=== PATIENT | female | born 1960 | race Asian ===

== ENCOUNTER 2016-12-26 14:42 | Inpatient (IN) | payer OTHER ==
[~2016-12-26] VITALS: Ht 172.7 cm; Wt 53.9 kg
[2016-12-26 14:55] LABS: BASOPHIL COUNT 0.1 K/uL (0-0.1); EOSINOPHIL (%) 1.2 % (0-5); EOSINOPHIL COUNT 0.1 K/uL (0-0.3); HEMATOCRIT 37.5 % (36.0-46.0); IMMATURE GRANULOCYTE (%) 0.5 % (0.0-0.7); INSTRUMENT ABS NEUTROPHIL CT 2.8 K/uL; LYMPHOCYTE COUNT 2.4 K/uL (1.0-2.8); MCH 28.8 PG (29.0-34.0); MCV 89.9 FL (83-99); MEAN PLAT.VOLUME 10.6 uM^3 (9.5-12.4); MONOCYTE (%) 7.9 % (3-12); MONOCYTE COUNT 0.5 K/uL (0-0.8); NEUTROPHIL (%) 48.2 % (45-76); NEUTROPHIL COUNT 2.8 K/uL (1.8-6.4); PLATELET COUNT 178 K/uL (156-360); RBC DIS.WIDTH-CV 12.8 % (11.8-14.6); RBC DIS.WIDTH-SD 41.6 % (39-53); RED BLOOD COUNT 4.17 M/uL (3.80-5.20); WHITE BLOOD COUNT 5.8 K/uL (4.1-10.2)
[2016-12-26 15:05] LABS: AMYLASE 82 IU/L (1-118)
[2016-12-26 15:06] LABS: CHLORIDE 107 mEq/L (99-109); POTASSIUM 3.3 mEq/L (3.7-5.4); SODIUM 143 mEq/L (136-147)
[2016-12-26 15:07] LABS: GLUCOSE 113 mg/dL (70-99)
[2016-12-26 15:09] LABS: ANION GAP 7 MEQ/L (2-14)
[2016-12-26 15:10] LABS: SERUM ETHYL ALCOHOL < 10 mg/dL
[2016-12-26 15:12] LABS: UREA NITROGEN (BUN) 20 mg/dL (9-23)
[2016-12-26 15:14] LABS: LIPASE 27 U/L (1.0-51.0)
[2016-12-26 15:20] LABS: QUANTITATIVE HCG < 4.0 MIU/ML
[2016-12-26 15:22] LABS: GFR ESTIMATE (CALCULATED) > 59 mL/min/
[2016-12-26 19:01] LABS: ADD MIUA? NO; BILIRUBIN NEGATIVE; BLOOD NEGATIVE; COLOR STRAW ((YELLOW)); GLUCOSE (STRIP) NEGATIVE; KETONES 5; LEUKOCYTES NEGATIVE; NITRITE NEGATIVE; PROTEIN (STRIP) NEGATIVE; SPECIFIC GRAVITY 1.043 (1.000-1.030); UCUL ADDED? NO; UROBILINOGEN 0.2 MG/DL (0.2-1.0)
[2016-12-26 19:10] LABS: AMPHETAMINE NEGATIVE (500 ng/mL); BARBITURATES NEGATIVE (200 ng/mL); BENZODIAZEPINES NEGATIVE (150 ng/mL); COCAINE NEGATIVE (150 ng/mL); INTERNAL CONTROLS VALID? YES; METHADONE NEGATIVE (200 ng/mL); METHAMPHETAMINE NEGATIVE (500 ng/mL); OPIATES (MORPHINE) NEGATIVE (100 ng/mL); OXYCODONE NEGATIVE (100 ng/mL); PHENCYCLIDINE NEGATIVE (25 ng/mL); PROPOXYPHENE NEGATIVE (300 ng/mL); THC CANNABINOIDS NEGATIVE (50 ng/mL); TRICYCLIC ANTIDEPRESSANTS NEGATIVE (300 ng/mL)
[2016-12-26 19:30] VITALS: BP 92/52
[2016-12-26 20:00] VITALS: BP 92/46; BP 94/62
[2016-12-26 20:30] VITALS: BP 91/55
[2016-12-26 21:00] VITALS: BP 92/46
[2016-12-26 21:27] LABS: METH RESISTANT S AUREUS PCR NEGATIVE (NEGATIVE)
[2016-12-26 21:28] LABS: PROBE CHECK PASS; SPECIMEN PROCESSING CONTROL PASS
[2016-12-26 21:46] LABS: HEMATOCRIT 35.6 % (36.0-46.0); MCH 29.2 PG (29.0-34.0); MCHC 32.6 G/DL (30.0-36.0); MCV 89.7 FL (83-99); MEAN PLAT.VOLUME 10.4 uM^3 (9.5-12.4); PLATELET COUNT 152 K/uL (156-360); RBC DIS.WIDTH-CV 12.8 % (11.8-14.6); RBC DIS.WIDTH-SD 41.8 % (39-53); RED BLOOD COUNT 3.97 M/uL (3.80-5.20); WHITE BLOOD COUNT 9.7 K/uL (4.1-10.2)
[2016-12-26 21:57] LABS: INTER. NORMALIZED RATIO 1.1; PROTHROMBIN TIME 11.4 (9.2-11.2); PTT 27.2 (25-32)
[2016-12-26 22:00] VITALS: BP 89/37
[2016-12-26 23:00] VITALS: BP 98/48
[2016-12-27] VITALS (18 sets, daily range): BP systolic 74–111; BP diastolic 40–67
[2016-12-27 04:01] LABS: HEMATOCRIT 35.9 % (36.0-46.0); MCH 28.8 PG (29.0-34.0); MEAN PLAT.VOLUME 10.6 uM^3 (9.5-12.4); PLATELET COUNT 146 K/uL (156-360); RBC DIS.WIDTH-CV 12.7 % (11.8-14.6); RBC DIS.WIDTH-SD 41.8 % (39-53); RED BLOOD COUNT 3.99 M/uL (3.80-5.20); WHITE BLOOD COUNT 8.3 K/uL (4.1-10.2)
[2016-12-27 04:12] LABS: CHLORIDE 113 mEq/L (99-109); SODIUM 141 mEq/L (136-147)
[2016-12-27 04:13] LABS: MAGNESIUM 1.6 mg/dL (1.3-2.7); POTASSIUM 4.1 mEq/L (3.7-5.4)
[2016-12-27 04:15] LABS: GLUCOSE 124 mg/dL (70-99)
[2016-12-27 04:16] LABS: ANION GAP 3 MEQ/L (2-14)
[2016-12-27 04:18] LABS: GFR ESTIMATE (CALCULATED) > 59 mL/min/
[2016-12-27 04:19] LABS: UREA NITROGEN (BUN) 13 mg/dL (9-23)
[2016-12-28] VITALS (13 sets, daily range): BP systolic 85–109; BP diastolic 52–65
[2016-12-28 04:58] LABS: CHLORIDE 109 mEq/L (99-109); POTASSIUM 4.1 mEq/L (3.7-5.4); SODIUM 142 mEq/L (136-147)
[2016-12-28 05:00] LABS: GLUCOSE 129 mg/dL (70-99)
[2016-12-28 05:02] LABS: ANION GAP 5 MEQ/L (2-14)
[2016-12-28 05:04] LABS: GFR ESTIMATE (CALCULATED) > 59 mL/min/
[2016-12-28 05:05] LABS: UREA NITROGEN (BUN) 10 mg/dL (9-23)
[2016-12-29 04:14] VITALS: BP 99/61
[2016-12-29 07:13] VITALS: BP 98/60
[2016-12-29 11:38] VITALS: BP 99/63
[2016-12-29 15:15] VITALS: BP 98/59
[2016-12-29 23:29] VITALS: BP 96/58
[2016-12-30 07:30] VITALS: BP 94/56
[2016-12-30] MEDS ORDERED: LEVETIRACETAM500 MG PO (10:51)
[2016-12-30] MEDS ORDERED: HYDROCODON-ACE1 EAC7 PO (10:51)
== END 2016-12-30 15:33 | disposition home or self-care (01) | DRG 964 ==
LOC: TRA 14:42 → 4WEST 16:47 → 3EAST 16:47 → EDOF 16:47 → 4WEST 19:10 → 3EAST 12-28 16:58
PROVIDERS: Emergency Medicine; Neurological Surgery; Surgery
DX: S06.5X9A Traumatic subdural hemorrhage with loss of consciousness of unspecified duration, initial encounter (principal); S27.321A Contusion of lung, unilateral, initial encounter; S22.32XA Fracture of one rib, left side, initial encounter for closed fracture; S70.00XA Contusion of unspecified hip, initial encounter; V43.62XA Car passenger injured in collision with other type car in traffic accident, initial encounter; Y92.410 Unspecified street and highway as the place of occurrence of the external cause; Z72.0 Tobacco use; E87.6 Hypokalemia; K59.00 Constipation, unspecified; Z68.1 Body mass index [BMI] 19.9 or less, adult
CPT/HCPCS: 70450; 71010; 71260; 72125; 72129; 72132; 72170; 74177; 80048; 81003; 82150; 83605; 83690; 83735; 84100; 84702; 85025; 85027; 85610; 85730; 86900; 86901; 87641; 97530 GO; 99281; 99284; C1713; G0480; J0690; J1100; J1170; J1953; J2405; J2710; J3010; J3480; J7030; J7050